=== PATIENT | male | born 1980 | race African-American/Black ===

== ENCOUNTER 2018-06-30 18:27 | Emergency (ER) | payer MEDICAID, MEDICARE, OTHER ==
[~2018-06-30] VITALS: Ht 180.3 cm; Wt 86.2 kg
--- NOTE | 2018-06-30 18:48 | Emergency Room Report ---
History of Present Illness General Chief Complaint: Skin Rash/Abscess Source: Patient Present Illness HPI 38-year-old male presents to the emergency department complaining of regression of his previously resolving cellulitis of the right thumb. Patient had a boil which required I and D and was infected and he was placed on antibiotics for 10 days. Pt. denies pain at this time. Patient states that his symptoms improved significantly however of the course of the last 2 days after he finished his antibiotics his symptoms took a turn and started sterile pain regressed. Patient reports erythema limited tenderness he denies crusting or purulent discharge. Patient was previously on clindamycin he states that he did not have any medication side effects denies diarrhea. He denies trauma or fall to the thumb. He is right-hand dominant Allergies: Coded Allergies: No Known Allergies (Unverified , 06/30/18) Patient History Past Medical History: see triage record Past Surgical History: none Pertinent Family History: none Reviewed Nursing Documentation: PMH: Agreed; PSxH: Agreed Nursing Documentation-PMH Past Medical History: No History, Except For Review of Systems All Other Systems: negative except mentioned in HPI Physical Exam Vital Signs Date Time Temp Pulse Resp B/P (MAP) Pulse Ox O2 Delivery O2 Flow Rate FiO2 06/30/18 18:31 89.2 68 20 112/75 97 Room Air Sp02 EP Interpretation: reviewed, normal General Appearance: no apparent distress, alert, GCS 15, non-toxic Head: normocephalic, atraumatic Eyes: bilateral eye normal inspection, bilateral eye PERRL ENT: hearing grossly normal, normal voice Neck: full range of motion Respiratory: lungs clear, normal breath sounds, speaking full sentences Cardiovascular #1: regular rate, rhythm, normal capillary refill Rectal: deferred Genitourinary: normal inspection Musculoskeletal: back normal, gait/station normal, normal range of motion, non- tender Neurologic: alert, oriented x3, responsive, motor strength/tone normal, sensory intact, speech normal, grossly normal Psychiatric: judgement/insight normal Skin: normal color, no rash, warm/dry, well hydrated, other - cellulitis of the right thumb. scar tissue also noted. Lymphatic: no adenopathy Medical Decision Making PA Attestation Dr. vela is my supervising Physician whom patient management has been discussed with. Diagnostic Impression: Primary Impression: Cellulitis Qualified Codes: L03.011 - Cellulitis of right finger ER Course 38-year-old male presents to the emergency department complaining of regression of his previously resolving cellulitis of the right thumb. Patient had a boil which required I and D and was infected and he was placed on antibiotics for 10 days. Pt. denies pain at this time. Patient states that his symptoms improved significantly however of the course of the last 2 days after he finished his antibiotics his symptoms took a turn and started sterile pain regressed. Patient reports erythema limited tenderness he denies crusting or purulent discharge. Patient was previously on clindamycin he states that he did not have any medication side effects denies diarrhea. He denies trauma or fall to the thumb. He is right-hand dominant Ddx considered but are not limited to cellulitis, paronychia, eponychia, ingrown toe nail, fracture, d/L, gout Vital signs: are WNL, pt. is afebrile H&PE are most consistent with mild cellulitis of the right thumb. scar tissue also noted. ORDERS: none required at this time, the diagnosis is clinical ED INTERVENTIONS: None required at this time. DISCHARGE: At this time pt. is stable for d/c to home. Will provide printed patient care instructions, and any necessary prescriptions. Care plan and follow up instructions have been discussed with the patient prior to discharge. Last Vital Signs Date Time Temp Pulse Resp B/P (MAP) Pulse Ox O2 Delivery O2 Flow Rate FiO2 06/30/18 18:31 89.2 68 20 112/75 97 Room Air Disposition: HOME, SELF-CARE Condition: Stable Scripts Mupirocin* (MUPIROCIN*) 22 Gm Oint...g. 1 APPLIC TOPIC BID, #22 GM Prov: Venus Arciniega 06/30/18 Cephalexin* (KEFLEX*) 500 Mg Capsule 500 MG ORAL EVERY 12 HOURS for 7 Days, #14 CAP 0 Refills Prov: Venus Arciniega 06/30/18 Patient Instructions: Cellulitis, [id number] Additional Instructions: Take medications as directed. Follow up with a Primary Care Provider in 3-5 days, even if your symptoms have resolved. --Please review list of primary care clinics, if you do not already have a primary care provider Return sooner to ED if new symptoms occur, or current symptoms become worse. - Please note that this Emergency Department Report was dictated using [employer] technology software, occasionally this can lead to erroneous entry secondary to interpretation by the dictation equipment. Venus Arciniega Jun 30, 2018 18:48
[2018-06-30] MEDS ORDERED: CEPHALEXIN500 MG ORAL (18:49)
[2018-06-30] MEDS ORDERED: MUPIROCIN22 GM TOPIC (18:49)
[2018-06-30] MEDS: Bacitracin Oint UD TOPIC ONE ×2 (19:11→19:16)
[2018-06-30 19:13] VITALS: BP 112/75
[2018-06-30 19:16] VITALS: BP 112/75
== END 2018-06-30 19:00 | disposition home or self-care (01) ==
LOC: EMR 18:50
DX: L03.011 Cellulitis of right finger (principal); Z79.2 Long term (current) use of antibiotics
CPT/HCPCS: 99283

== ENCOUNTER 2018-07-08 13:46 | Emergency (ER) | payer MEDICARE ==
--- NOTE | 2018-07-08 13:48 | NUR ---
ED Nurse Note: PT CALLED BUT NOT IN WAITING AREA.
--- NOTE | 2018-07-08 13:54 | NUR ---
ED Nurse Note: PT CALLED AGAIN. PT STILL NOT IN WAITING AREA.
--- NOTE | 2018-07-08 14:00 | NUR ---
ED Nurse Note: PT CALLED AGAIN. PT STILL NOT IN WAITING AREA.
--- NOTE | 2018-07-11 07:02 | Emergency Room Report ---
History of Present Illness General Chief Complaint: To Be Triaged Present Illness Allergies: Coded Allergies: No Known Allergies (Unverified , 06/30/18) Medical Decision Making ER Course Patient left without being seen. Disposition: LEFT W/OUT BEING SEEN Referrals: NOT CHOSEN [facility]/,REFERRING (PCP) Will Ho MD Jul 11, 2018 07:02
== END 2018-07-08 14:46 | disposition left against medical advice (07) ==
LOC: EMR 14:43
DX: L08.9 Local infection of the skin and subcutaneous tissue, unspecified (principal); Z23 Encounter for immunization

== ENCOUNTER → 2018-07-08 | Emergency (ER) | payer MEDICARE ==
[~2018-07-08] MED LIST: CEPHALEXIN500 MG ORAL; MUPIROCIN22 GM TOPIC
--- NOTE | 2018-07-11 07:01 | Emergency Room Report ---
History of Present Illness General Chief Complaint: To Be Triaged Present Illness Allergies: Coded Allergies: No Known Allergies (Unverified , 06/30/18) Medical Decision Making ER Course Patient Left without being seen by me. Disposition: LEFT W/OUT BEING SEEN Condition: Unknown Referrals: NOT CHOSEN [facility]/,REFERRING (PCP) Will Ho MD Jul 11, 2018 07:01
== END | disposition left against medical advice (07) ==
LOC: EMR 12:58
DX: L08.9 Local infection of the skin and subcutaneous tissue, unspecified (principal); Z53.21 Procedure and treatment not carried out due to patient leaving prior to being seen by health care provider

== ENCOUNTER 2018-12-18 09:39 | Emergency (ER) | payer MEDICARE ==
[~2018-12-18] VITALS: Ht 182.9 cm; Wt 86.2 kg
[2018-12-18] MEDS ORDERED: NKM (09:48)
[2018-12-18 09:56] VITALS: BP 151/98
--- NOTE | 2018-12-18 10:24 | Emergency Room Report ---
History of Present Illness General Chief Complaint: Skin Rash/Abscess Source: Patient, Medical Record Present Illness HPI The patient states that he has had a skin infection on his right thumb. He finished a course of Bactrim and Keflex. He states that he would like Bactroban for use topically. He states the Bactroban has worked very well for him. He has no other complaints. Allergies: Coded Allergies: No Known Allergies (Unverified , 06/30/18) Patient History Past Medical History: none, see triage record Reviewed Nursing Documentation: PMH: Agreed; PSxH: Agreed Nursing Documentation-PMH Past Medical History: No History, Except For Hx Cardiac Problems: No - cellulitis Review of Systems All Other Systems: negative except mentioned in HPI Physical Exam Vital Signs Date Time Temp Pulse Resp B/P (MAP) Pulse Ox O2 Delivery O2 Flow Rate FiO2 12/18/18 09:45 97.9 60 16 157/99 (118) 98 Room Air Sp02 EP Interpretation: reviewed, normal General Appearance: no apparent distress, alert, GCS 15, non-toxic Head: normocephalic, atraumatic ENT: hearing grossly normal, no angioedema, normal voice Neck: normal inspection Respiratory: no respiratory distress, no retraction, no accessory muscle use, speaking full sentences Rectal: deferred Musculoskeletal: normal inspection, gait/station normal Neurologic: alert, oriented x3, responsive, motor strength/tone normal, sensory intact, speech normal Psychiatric: judgement/insight normal, memory normal, mood/affect normal, no suicidal/homicidal ideation Skin: normal color, no rash, warm/dry, well hydrated, other - Dorsal surface of R. thumb has thickened skin. No obvious infection. No swelling. No fluctuance. Medical Decision Making Diagnostic Impression: Primary Impression: Rash and other nonspecific skin eruption ER Course This patient previously had an infection on the skin of his right thumb. There is no evidence of ongoing infection at this time. This appears healed. There is an area of thickening of the skin that is likely a reaction to the ongoing Bactroban. However, the patient is adamant that he needs more Bactroban. I did educate the patient to follow-up with the primary care physician. He was given the Bactroban as requested. There is no evidence of cellulitis or other serious infection. The patient is given close return precautions and follow-up instructions. Last Vital Signs Date Time Temp Pulse Resp B/P (MAP) Pulse Ox O2 Delivery O2 Flow Rate FiO2 12/18/18 09:56 97.9 68 15 151/98 99 Room Air Status: improved Disposition: HOME, SELF-CARE Condition: Improved Patient Instructions: Jennifer Sherman DO Dec 18, 2018 10:24
[2018-12-18] MEDS ORDERED: ANTIBIOTIC28.4 GM TP (10:27)
[2018-12-18] MEDS ORDERED: Bacitracin Oint UD TOPIC ONE (10:30)
[2018-12-18 10:42] VITALS: BP 151/98
== END 2018-12-18 10:42 | disposition home or self-care (01) ==
LOC: EMR 10:20
DX: R21 Rash and other nonspecific skin eruption (principal)
CPT/HCPCS: 99282

== ENCOUNTER 2019-05-17 08:15 | Emergency (ER) | payer MEDICARE ==
[~2019-05-17] VITALS: Ht 180.3 cm; Wt 81.6 kg
[~2019-05-17 08:15] MED LIST changes: +ANTIBIOTIC28.4 GM TP; +NKM
--- NOTE | 2019-05-17 08:26 | NUR ---
ER DISCHARGE NOTE: Patient is cleared to be discharged per ERMD, pt is aox4, on room air, with stable vital signs. pt was given dc and prescription instructions, pt was able to verbalize understanding, pt id band removed without complications. pt is able to ambulate with steady gait. pt took all belongings. Pt given resources regarding free clinics and hospital care. Pt verbalized understanding. MD aware pt pain 5/10.
--- NOTE | 2019-05-17 08:26 | NUR ---
Claudy maria in [facility] - 05/17/19 at 0838 by ASHTYN XR taken.
[2019-05-17 08:28] VITALS: BP 117/82
--- NOTE | 2019-05-17 08:30 | NUR ---
ED Nurse Note: Pt walked in from home. Pt states he ran out of medication. VSS. Patient alert and orientedx4. Visual acuity R eye 20/200 and L eye cannot see anything on sign.
--- NOTE | 2019-05-17 08:32 | NUR ---
ED Nurse Note: vision acuity test done by RN. Rt eye 20/200 but with Lt eye pt can only see nurse standing next vision acuity test chart but not even 20/200.
--- NOTE | 2019-05-17 08:43 | Emergency Room Report ---
History of Present Illness General Chief Complaint: Medication Refill Source: Patient Present Illness HPI This patient is homeless. He states that he is in a difficult living situation right now. He states that he does have glaucoma and he is out of his eye drops and he doesn't have a PCP so he goes to the ER to get the prescriptions he needs. He admits to understanding that he needs to have a primary physician and an cant hooker to follow up with. He is requesting refill of his cosopt and travoprost. He has no other complaints. Allergies: Coded Allergies: No Known Allergies (Unverified , 06/30/18) Patient History Past Medical History: see triage record, other - glaucoma Social History: Reports: alcohol use, drug use Reviewed Nursing Documentation: PMH: Agreed; PSxH: Agreed Nursing Documentation-PMH Past Medical History: No History, Except For Hx Cardiac Problems: No - cellulitis glaucoma Review of Systems All Other Systems: negative except mentioned in HPI Physical Exam Vital Signs Date Time Temp Pulse Resp B/P (MAP) Pulse Ox O2 Delivery O2 Flow Rate FiO2 05/17/19 08:18 97.5 75 18 123/83 (96) 100 Room Air Sp02 EP Interpretation: reviewed, normal General Appearance: no apparent distress, alert, GCS 15, non-toxic, other - poor personal hygiene Head: normocephalic, atraumatic Eyes: 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); bilateral eye PERRL ENT: hearing grossly normal, normal pharynx, no angioedema, normal voice Neck: normal inspection, full range of motion, supple/symm/no masses Respiratory: no respiratory distress, no retraction, no accessory muscle use, speaking full sentences Rectal: deferred Musculoskeletal: normal inspection, gait/station normal Neurologic: alert, oriented x3, responsive, motor strength/tone normal, sensory intact, speech normal Psychiatric: judgement/insight normal, memory normal, mood/affect normal, no suicidal/homicidal ideation Medical Decision Making Diagnostic Impression: Primary Impression: Encounter for medication refill ER Course This patient has know glaucoma and is requesting medication refill. I did give him a list of the local free/low-cost/medi-luís clinics and impressed upon him the importance of regular medical care and eye care. He indicated understanding and intention of seeking follow-up. He is given close return precautions and f/u instructions. Last Vital Signs Date Time Temp Pulse Resp B/P (MAP) Pulse Ox O2 Delivery O2 Flow Rate FiO2 05/17/19 08:28 97.5 70 18 117/82 100 Room Air Disposition: HOME, SELF-CARE Condition: Stable Patient Instructions: Medicine Refill at the Emergency Department Jennifer Arita DO May 17, 2019 08:43
--- NOTE | 2019-05-17 08:54 | NUR ---
ED Nurse Note: ERMD at bedside.
[2019-05-17] MEDS ORDERED: COSOPT EYE DROP10 M1 OP (09:09)
[2019-05-17] MEDS ORDERED: TRAVATAN Z5 ML OP (09:09)
--- NOTE | 2019-05-17 09:25 | NUR ---
ED Nurse Note: pt tried to leave. reminded ERMD for discharge paper and prescriptions.
[2019-05-17 09:28] VITALS: BP 117/80
== END 2019-05-17 09:26 | disposition home or self-care (01) ==
LOC: EMR 08:48
DX: Z76.0 Encounter for issue of repeat prescription (principal); H40.9 Unspecified glaucoma; Z72.89 Other problems related to lifestyle; F19.90 Other psychoactive substance use, unspecified, uncomplicated
CPT/HCPCS: 99281

== ENCOUNTER 2019-08-13 07:47 | Emergency (ER) | payer MEDICARE ==
[~2019-08-13] VITALS: Ht 180.3 cm; Wt 90.7 kg
[~2019-08-13 07:47] MED LIST changes: +COSOPT EYE DROP10 M1 OP; +TRAVATAN Z5 ML OP
[2019-08-13 08:15] VITALS: BP 115/80
--- NOTE | 2019-08-13 08:15 | NUR ---
ED Nurse Note: pt walked in to ED for glaucoma medication refill. Pt states he needs Cosopt and travatan z
[2019-08-13] MEDS ORDERED: TRAVOPROST2.5 ML OP (08:23)
[2019-08-13] MEDS ORDERED: COSOPT EYE DROP10 M1 OP (08:23)
[2019-08-13 08:29] VITALS: BP 120/77
--- NOTE | 2019-08-13 08:29 | NUR ---
ER DISCHARGE NOTE: Patient is cleared to be discharged per ERMD, pt is aox4, on room air, with stable vital signs. pt was given dc and prescription instructions, pt was able to verbalize understanding, pt id band removed without complications. pt is able to ambulate with steady gait. pt took all belongings.
--- NOTE | 2019-08-13 11:14 | Emergency Room Report ---
History of Present Illness General Chief Complaint: Medication Refill Source: Patient Present Illness HPI Patient presents with reports of right-sided glaucoma he has been taking eyedrops for several years and reports that he is running out of his medication he has had difficulty following with primary sales recruiting coordinator Denies any change in vision denies any headache denies any abdominal pain and essentially asking regarding refill of his medications Allergies: Coded Allergies: No Known Allergies (Unverified , 06/30/18) Patient History Past Medical History: see triage record Reviewed Nursing Documentation: PMH: Agreed; PSxH: Agreed Nursing Documentation-PMH Past Medical History: No History, Except For Hx Cardiac Problems: No - glaucoma Hx Hypertension: No Hx Pacemaker: No Hx Asthma: No Hx COPD: No Hx Diabetes: No Hx Cancer: No Hx Gastrointestinal Problems: No Hx Dialysis: No History Of Psychiatric Problem: No Hx Neurological Problems: No Hx Cerebrovascular Accident: No Hx Seizures: No Review of Systems All Other Systems: negative except mentioned in HPI Physical Exam Vital Signs Date Time Temp Pulse Resp B/P (MAP) Pulse Ox O2 Delivery O2 Flow Rate FiO2 08/13/19 08:10 97.5 75 16 110/66 (81) 99 Room Air Sp02 EP Interpretation: reviewed, normal General Appearance: well appearing, no apparent distress Head: normocephalic, atraumatic Eyes: bilateral eye PERRL, bilateral eye EOMI, bilateral eye other - No signs of any proptosis pupil is reactive appropriately ENT: EOM grossly intact Neck: supple Respiratory: lungs clear, no respiratory distress, no retraction Cardiovascular #1: regular rate, rhythm Gastrointestinal: non tender, soft Musculoskeletal: normal inspection Neurologic: alert, oriented x3 Skin: no rash Lymphatic: no adenopathy Medical Decision Making Diagnostic Impression: Primary Impression: glaucoma ER Course Patient's findings are consistent with glaucoma Given the importance of the medication he is written for a prescription However he understands the importance of close outpatient follow-up Possible change in medications with more appropriate eye exam Patient was also discussed this on his last visit in May And verbalizes understanding of the need for close follow-up with possible consequences of negative outcomes without this Last Vital Signs Date Time Temp Pulse Resp B/P (MAP) Pulse Ox O2 Delivery O2 Flow Rate FiO2 08/13/19 08:29 97.6 79 18 120/77 98 Room Air Status: unchanged Disposition: HOME, SELF-CARE Condition: Stable Scripts Dorzolamide Hcl/Timolol Maleat (COSOPT EYE DROPS) 10 Ml Drops 1 DROP OP BID, #5 ML Prov: Beltran Bailey DO 08/13/19 Travoprost (Travoprost) 2.5 Ml Drops 1 DROP OP QHS, #5 ML Prov: Beltran Bailey DO 08/13/19 Referrals: NOT CHOSEN IPA/MD,REFERRING (PCP) KALLI HADDAD Patient Instructions: Glaucoma, [id number] Additional Instructions: Patient is provided with the discharge instructions notified to follow up with primary doctor in the next 2-3 days otherwise return to the er with any worsening symptoms. Please note that this report is being documented using [employer] technology. This can lead to erroneous entry secondary to incorrect interpretation by the dictating instrument. Beltran Bailey DO Aug 13, 2019 11:14
== END 2019-08-13 08:29 | disposition home or self-care (01) ==
LOC: EMR 08:15
DX: H40.9 Unspecified glaucoma (principal)
CPT/HCPCS: 99282

== ENCOUNTER 2019-10-14 14:38 | Emergency (ER) | payer MEDICARE ==
[~2019-10-14] VITALS: Ht 180.3 cm; Wt 86.2 kg
[~2019-10-14 14:38] MED LIST changes: +TRAVOPROST2.5 ML OP
[2019-10-14 14:49] VITALS: BP 109/69
--- NOTE | 2019-10-14 14:49 | NUR ---
ED Nurse Note: ambulated in to ED due to medrefill for his glaucoma- Xalatan and Cosopt. Breathing normal/even/unlabored. skin warm/dry/intact. Per pt, no recent vision changes. NAD noted.
--- NOTE | 2019-10-14 14:52 | Emergency Room Report ---
History of Present Illness General Chief Complaint: Medication Refill Source: Patient Present Illness HPI 39-year-old male with history of glaucoma here requesting refill of eyedrops. Patient has been here multiple times for the same complaint. Reports that he has not been able to establish an moving worker due to changes of insurance as well as insurance purposes. Reports that has an upcoming appointment next month. Reports there has been no changes to his vision. Allergies: Coded Allergies: No Known Allergies (Unverified , 06/30/18) COVID-19 Screening Contact w/high risk pt: No Recent Travel to affected area: No Experienced COVID-19 symptoms?: No Patient History Past Medical History: see triage record Past Surgical History: none Pertinent Family History: none Immunizations: UTD Reviewed Nursing Documentation: PMH: Agreed; PSxH: Agreed Nursing Documentation-PMH Hx Cardiac Problems: No - glaucoma Hx Hypertension: No Hx Pacemaker: No Hx Asthma: No Hx COPD: No Hx Diabetes: No Hx Cancer: No Hx Gastrointestinal Problems: No Hx Dialysis: No Hx Neurological Problems: No Hx Cerebrovascular Accident: No Hx Seizures: No Review of Systems All Other Systems: negative except mentioned in HPI Physical Exam Vital Signs Date Time Temp Pulse Resp B/P (MAP) Pulse Ox O2 Delivery O2 Flow Rate FiO2 10/14/19 14:44 97.9 83 19 109/69 (82) 96 Room Air Sp02 EP Interpretation: reviewed, normal General Appearance: well appearing, no apparent distress Head: normocephalic, atraumatic Eyes: bilateral eye other - Glaucoma both eyes ENT: hearing grossly normal, normal voice Neck: full range of motion, supple Respiratory: lungs clear, no respiratory distress, speaking full sentences Cardiovascular #1: no edema Gastrointestinal: normal inspection Genitourinary: no CVA tenderness Musculoskeletal: gait/station normal Neurologic: alert, oriented Psychiatric: normal inspection, judgement/insight normal, mood/affect normal Skin: normal color, no rash Lymphatic: normal inspection Medical Decision Making PA Attestation All my diagnosis and treatment plans were reviewed ad discussed with my supervising physician Dr. Whitehead Diagnostic Impression: Primary Impression: Encounter for medication refill ER Course 39-year-old male with history of glaucoma here requesting refill of eyedrops. Patient has been here multiple times for the same complaint. Reports that he has not been able to establish an moving worker due to changes of insurance as well as insurance purposes. Reports that has an upcoming appointment next month. Reports there has been no changes to his vision. Ddx considered but are not limited to: Acute glaucoma, chronic glaucoma, retinal detachment Vital signs: are WNL, pt. is afebrile H&PE are most consistent with: Medication refill for chronic lower, ORDERS: cosopt, xalatan ED INTERVENTIONS: None required at this time. DISCHARGE: At this time pt. is stable for d/c to home. Will provide printed patient care instructions, and any necessary prescriptions. Care plan and follow up instructions have been discussed with the patient prior to discharge. Last Vital Signs Date Time Temp Pulse Resp B/P (MAP) Pulse Ox O2 Delivery O2 Flow Rate FiO2 10/14/19 14:49 97.9 75 19 109/69 96 Room Air Disposition: HOME, SELF-CARE Condition: Stable Scripts Latanoprost* (XALATAN*) 2.5 Ml Drops 1 DROP BOTH EYES BEDTIME, #5 ML 0 Refills Prov: Chance Logan 10/14/19 Dorzolamide Hcl/Timolol Maleat (COSOPT EYE DROPS) 10 Ml Drops 1 DRP OP BID, #10 ML Prov: Chance Logan 10/14/19 Patient Instructions: Medicine Refill at the Emergency Department Chance Logan Oct 14, 2019 14:52
[2019-10-14] MEDS ORDERED: LATANOPROST2.5 ML BOTH EYES (14:54)
[2019-10-14] MEDS ORDERED: COSOPT EYE DROP10 M1 OP (14:54)
[2019-10-14 15:00] VITALS: BP 109/69
--- NOTE | 2019-10-14 15:00 | NUR ---
ER DISCHARGE NOTE: Patient is cleared to be discharged per ERMD, pt is aox4, on room air, with stable vital signs. pt was given dc and prescription instructions, pt was able to verbalize understanding, pt id band and iv site removed without complications. pt is able to ambulate with steady gait. pt took all belongings.
== END 2019-10-14 15:00 | disposition home or self-care (01) ==
LOC: EMR 14:50
DX: H40.9 Unspecified glaucoma (principal); Z76.0 Encounter for issue of repeat prescription
CPT/HCPCS: 99282

== ENCOUNTER 2020-01-29 10:57 | Emergency (ER) | payer MEDICARE ==
[~2020-01-29] VITALS: Ht 180.3 cm; Wt 86.2 kg
[~2020-01-29 10:57] MED LIST changes: +LATANOPROST2.5 ML BOTH EYES
[2020-01-29 11:08] VITALS: BP 120/82
--- NOTE | 2020-01-29 11:08 | NUR ---
ED Nurse Note: Patient walked in to ED for medication refill. Per pt, he ran out of his eyedrops meds Cosopt and Xalatan for glaucoma x 2-3 weeks. No SOB. AAOX4, verbally responsive. VSS.
[2020-01-29] MEDS ORDERED: COSOPT EYE DROP10 M1 OP (11:19)
[2020-01-29] MEDS ORDERED: LATANOPROST2.5 ML BOTH EYES (11:19)
--- NOTE | 2020-01-29 11:26 | Emergency Room Report ---
History of Present Illness General Chief Complaint: Medication Refill Source: Patient Present Illness HPI Disclaimer: Please note that this report is being documented using [employer] technology. This can lead to erroneous entry secondary to incorrect interpretation by the dictating instrument. HPI: 39-year-old male history glaucoma presents requesting medication refill. He does not follow with primary care or ophthalmology due to insurance issue. He has been without his medications for 2 weeks. Denies any new eye trauma or significant change in vision though he does report decreasing vision without his medications. Multiple ER presentations for similar complaint. Denies eye pain. Restriction of extraocular movements. Lacrimation, purulent drainage, irritation or pain. PMH: Glaucoma PSH: Unspecified eye surgery Allergies: Denied Social Hx: Denied Allergies: Coded Allergies: No Known Allergies (Unverified , 06/30/18) COVID-19 Screening Contact w/high risk pt: No Recent Travel to affected area: No Experienced COVID-19 symptoms?: No COVID-19 Testing performed EXPORT MANAGER: No Nursing Documentation-PMH Past Medical History: No Stated History Hx Cardiac Problems: No - glaucoma Hx Hypertension: No Hx Pacemaker: No Hx Asthma: No Hx COPD: No Hx Diabetes: No Hx Cancer: No Hx Gastrointestinal Problems: No Hx Dialysis: No Hx Neurological Problems: No Hx Cerebrovascular Accident: No Hx Seizures: No Review of Systems All Other Systems: negative except mentioned in HPI Physical Exam Vital Signs Date Time Temp Pulse Resp B/P (MAP) Pulse Ox O2 Delivery O2 Flow Rate FiO2 01/29/20 11:03 97.9 87 16 120/82 (95) 98 Room Air General: Awake and alert, no acute distress HEENT: NC/AT. EOMI. PERRLA. No scleral injection. No lacrimation, no purulent drainage. No lid edema. Intraocular pressures: OD 39, OS 31. Cardiovascular: RRR. S1 and S2 normal. No murmur appreciated Resp: Normal work of breathing. No cough, wheezing or crackles appreciated Abdomen: Abdomen is soft, nondistended. Nontender Skin: Intact. No abrasions, laceration or rash over the exposed skin MSK: Normal tone and bulk. Moving all extremities. No obvious deformity. Neuro: Awake and alert. Mentating appropriately. Medical Decision Making Diagnostic Impression: Primary Impression: Encounter for medication refill Additional Impression: Glaucoma ER Course Is a 39-year-old male with a history of glaucoma presenting to ED requesting medication refill. Patient does have increased intraocular pressures but no evidence of acute closed angle glaucoma. No pain, no edema, no restriction in eye movement and otherwise his vision is at baseline. States he simply needs his medications but would like a referral to a primary care doctor which was provided to him. Patient reports he always has elevated intraocular pressures consistent with his chronic glaucoma and numbers today fall in that range. I did refill his medications and referred him to doctors in the area as well as primary care clinics. Instructed him to return to the emergency department should he develop any pain, worsening vision, headache, swelling or other sudden changes in his health. He understands and agrees with this treatment plan. Last Vital Signs Date Time Temp Pulse Resp B/P (MAP) Pulse Ox O2 Delivery O2 Flow Rate FiO2 01/29/20 11:08 97.9 87 16 120/82 98 Room Air Disposition: HOME, SELF-CARE Condition: Stable Scripts Latanoprost* (XALATAN*) 2.5 Ml Drops 1 DROP BOTH EYES BEDTIME, #5 ML 0 Refills Prov: Darin Lozano MD 01/29/20 Dorzolamide Hcl/Timolol Maleat (COSOPT EYE DROPS) 10 Ml Drops 1 DRP OP BID, #10 ML Prov: Darin Lozano MD 01/29/20 Referrals: [facility] Patient Instructions: Medicine Refill at the Emergency Department Additional Instructions: Please follow-up with your primary care doctor in the next 1 to 3 days to discuss this emergency department visit and for reevaluation. If you have any new or worsening symptoms please return to the emergency department for reevaluation. Please note that this report is being documented using Rebtel technology. This can lead to erroneous entry secondary to incorrect interpretation by the dictating instrument. Darin Lozano MD Jan 29, 2020 11:26
[2020-01-29 11:34] VITALS: BP 120/82
--- NOTE | 2020-01-29 11:34 | NUR ---
ED Nurse Note: Pt cleared by ERMD for discharge. DC instructions was given and explained to pt and verbalized understanding of teachings. prescription sent electronically to the pharmacy of choice. All medical deviecs such as ID band removed. Pt is AAO x4, ambulatory and left with all personal belongings.
== END 2020-01-29 11:43 | disposition home or self-care (01) ==
LOC: EMR 11:25
DX: Z76.0 Encounter for issue of repeat prescription (principal); H40.9 Unspecified glaucoma
CPT/HCPCS: 99282

== ENCOUNTER 2020-06-05 13:15 | Emergency (ER) | payer MEDICARE ==
[~2020-06-05] VITALS: Ht 180.3 cm; Wt 90.7 kg
--- NOTE | 2020-06-05 13:39 | Emergency Room Report ---
History of Present Illness General Chief Complaint: Medication Refill Source: Patient Present Illness HPI 39-year-old male with history of glaucoma presents to the emergency department requesting medication refill for his ophthalmic drops. Patient states he ran out of his eyedrops 2 days ago. Patient denies visual changes, floaters, loss of vision, headaches or blurry vision. Patient denies any other symptoms at this time. He has no other medical complaints. He denies pain. Allergies: Coded Allergies: No Known Allergies (Unverified , 06/30/18) COVID-19 Screening Contact w/high risk pt: No Recent Travel to affected area: No Experienced COVID-19 symptoms?: No COVID-19 Testing performed [employer] MANAGER: No Patient History Past Medical History: see triage record Past Surgical History: none Pertinent Family History: none Reviewed Nursing Documentation: PMH: Agreed; PSxH: Agreed Nursing Documentation-PMH Past Medical History: No History, Except For Hx Cardiac Problems: No - glaucoma Hx Hypertension: No Hx Pacemaker: No Hx Asthma: No Hx COPD: No Hx Diabetes: No Hx Cancer: No Hx Gastrointestinal Problems: No Hx Dialysis: No Hx Neurological Problems: No Hx Cerebrovascular Accident: No Hx Seizures: No Review of Systems All Other Systems: negative except mentioned in HPI Physical Exam Vital Signs Date Time Temp Pulse Resp B/P (MAP) Pulse Ox O2 Delivery O2 Flow Rate FiO2 06/05/20 13:24 98.1 72 16 120/68 (85) 99 Room Air Sp02 EP Interpretation: reviewed, normal General Appearance: no apparent distress, alert, GCS 15, non-toxic Head: normocephalic, atraumatic Eyes: bilateral eye normal inspection, bilateral eye PERRL ENT: hearing grossly normal, normal voice Neck: full range of motion Respiratory: lungs clear, normal breath sounds, speaking full sentences Cardiovascular #1: regular rate, rhythm Musculoskeletal: normal range of motion, gait/station normal, non-tender Neurologic: alert, motor strength/tone normal, oriented x3, sensory intact, responsive, speech normal Psychiatric: judgement/insight normal Skin: no rash, normal color Medical Decision Making PA Attestation Dr. Whitehead is my supervising Physician whom patient management has been discussed with. Diagnostic Impression: Primary Impression: Encounter for medication refill ER Course 39-year-old male with history of glaucoma presents to the emergency department requesting medication refill for his ophthalmic drops. Patient states he ran out of his eyedrops 2 days ago. Patient denies visual changes, floaters, loss of vision, headaches or blurry vision. Patient denies any other symptoms at this time. He has no other medical complaints. He denies pain. Ddx considered but are not limited to: JHA, increased, IOP, acute glaucoma just to name a few. Vital signs: are WNL, pt. is afebrile H&PE are most consistent with need for medication refill. ORDERS: none required at this time, the diagnosis is clinical ED INTERVENTIONS: None required at this time. DISCHARGE: At this time pt. is stable for d/c to home. Will provide printed patient care instructions, and any necessary prescriptions. Care plan and follow up instructions have been discussed with the patient prior to discharge. Last Vital Signs Date Time Temp Pulse Resp B/P (MAP) Pulse Ox O2 Delivery O2 Flow Rate FiO2 06/05/20 13:24 98.1 72 16 120/68 (85) 99 Room Air Disposition: HOME, SELF-CARE Scripts Latanoprost* (XALATAN*) 2.5 Ml Drops 1 DROP BOTH EYES BEDTIME, #2.5 ML 0 Refills Prov: Venus Arcinieag 06/05/20 Dorzolamide Hcl/Timolol Maleat (COSOPT EYE DROPS) 10 Ml Drops 1 DROP OP BID, #10 ML 1 Refill Prov: Venus Arciniega 06/05/20 Patient Instructions: Medicine Refill at the Emergency Department Additional Instructions: Take medications as directed. Follow up with a Primary Care Provider in 3-5 days, even if your symptoms have resolved. Return sooner to ED if new symptoms occur, or current symptoms become worse. - Please note that this Emergency Department Report was dictated using [employer] surgical technology software, occasionally this can lead to erroneous entry secondary to interpretation by the dictation equipment. Venus Arciniega Jun 05, 2020 13:39
[2020-06-05] MEDS ORDERED: COSOPT EYE DROP10 M1 OP (13:43)
--- NOTE | 2020-06-05 14:00 | NUR ---
ED Nurse Note: Pt cleared by health care Provider for discharge. DC instructions/prescription was given and explained to pt and verbalized understanding of teachings. All medical deviecs such as ID band removed. Pt is AAO x4, ambulatory and left with all personal belongings.
[2020-06-05] MEDS ORDERED: LATANOPROST2.5 ML BOTH EYES (14:04)
[2020-06-05 14:58] VITALS: BP 120/68
== END 2020-06-05 14:00 | disposition home or self-care (01) ==
LOC: EMR 13:48
DX: Z76.0 Encounter for issue of repeat prescription (principal); H40.9 Unspecified glaucoma
CPT/HCPCS: 99282